=== PATIENT | female | born 1995 | race Hispanic/Latino ===

== ENCOUNTER 2024-10-07 20:58 | Emergency (ER) | payer OTHER, BC ==
[~2024-10-07] VITALS: Ht 157.5 cm; Wt 81.6 kg
--- NOTE | 2024-10-07 21:03 | NUR ---
UA CUP PROVIDED
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
[2024-10-07] MEDS ORDERED: CYCL10TA16 PO (22:08)
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
[2024-10-07] MEDS: CYCLOBENZAPRINE HCL 10 MG TABLET PO ONE (22:40)
[2024-10-07 22:43] VITALS: BP 144/81; PULSE 74; RESP 16; TEMP 98.3; O2SAT 98
[2024-10-07] MEDS: acetaMINOPHEN 500 MG TABLET PO ONE (22:43)
== END 2024-10-07 22:55 | disposition home or self-care (01) ==
LOC: EDH 20:58
DX: S16.1XXA Strain of muscle, fascia and tendon at neck level, initial encounter (principal); S43.492A Other sprain of left shoulder joint, initial encounter; G43.909 Migraine, unspecified, not intractable, without status migrainosus; V49.9XXA Car occupant (driver) (passenger) injured in unspecified traffic accident, initial encounter; Y93.89 Activity, other specified; Y92.488 Other paved roadways as the place of occurrence of the external cause; Y99.8 Other external cause status
CPT/HCPCS: 72040; 73000; 99284